=== PATIENT | female | born 1945 | race Caucasian/White ===

== ENCOUNTER 2018-05-05 22:18 | Inpatient (IN) | payer MEDICARE, OTHER ==
[~2018-05-05] VITALS: Ht 170.2 cm; Wt 99.8 kg
[~2018-05-05 22:18] MED LIST: CARV6.25 PO; DILTIAZEM PO; FERROUS SULFATE PO; GLIPIZIDE; PANT40TA25 PO; SITA100T12 PO; VALS160T2 PO
[2018-05-05] MEDS ORDERED: ASPIRIN 325 MG TABLET ONE (22:35)
[2018-05-05] MEDS ORDERED: DILTIAZEM HCL 5 MG/ML 5 ML VIAL IVP ONE ×2 (22:36→22:44)
[2018-05-05] MEDS ORDERED: SODIUM CHLORIDE 0.9% 100 ML IV ONE (22:39)
[2018-05-05] MEDS ORDERED: DILTIAZEM HCL 5 MG/ML 10 ML VIAL IV ONE (22:40)
[2018-05-05 22:42] LABS: BASOPHILS % (AUTO) 0.9 % (0.0-5.0); EOSINOPHILS % (AUTO) 1.4 % (0.0-8.0); LYMPHOCYTES % (AUTO) 30.5 % (21.0-51.0); MEAN CORPUSCULAR HEMOGLOBIN 25.4 pg (27.0-33.0); MEAN CORPUSCULAR VOLUME 79.5 fL (79-99); MONOCYTES % (AUTO) 6.9 % (3.0-13.0); NEUTROPHILS % (AUTO) 60.3 % (40.0-77.0); PLATELET COUNT (AUTO) 169 K/uL (130-400); RED BLOOD CELL COUNT(AUTO) 4.27 MIL/uL (4.00-5.50); RED CELL DISTRIBUTION WIDTH 17.3 % (11.0-15.5)
[2018-05-05 22:49] LABS: CREATININE 1.2 mg/dL (0.5-1.5); POTASSIUM 4.3 mmol/L (3.5-5.1)
[2018-05-05 22:57] LABS: INR 1.03 (0.85-1.15); PARTIAL THROMBOPLASTIN TIME 26.8 SEC (26.3-35.5); PROTHROMBIN TIME 10.8 SEC (9.6-11.6)
[2018-05-05 23:01] LABS: ALBUMIN 3.6 g/dL (3.5-5.0); BILIRUBIN,TOTAL 0.2 mg/dL (0.2-1.0); TOTAL PROTEIN, SERUM 7.9 g/dL (6.0-8.3)
[2018-05-05 23:06] LABS: B-TYPE NATRIURETIC PEPTIDE 158 pg/mL (0-100)
[2018-05-05] MEDS: SODIUM CHLORIDE 0.9% 1000ML 1,000 ML IV SCH (23:42)
[2018-05-05] MEDS ORDERED: ACETAMINOPHEN 325 MG TAB PO PRN ×2 (23:45)
[2018-05-05] MEDS ORDERED: GLUCAGON 1MG KIT 1 MG ML IM PRN (23:45)
[2018-05-05] MEDS ORDERED: POTASSIUM CHLORIDE 20MEQ/100ML 100 ML IV PRN (23:45)
[2018-05-05] MEDS ORDERED: POTASSIUM CHLORIDE 10% ELIXIR 20 MEQ/15 ML UDCUP PO PRN (23:45)
[2018-05-05] MEDS ORDERED: MAGNESIUM 2GM PREMIX 50ML 50 ML IV PRN (23:45)
[2018-05-05] MEDS ORDERED: DILTIAZEM 125MG+100 ML NS 125 ML IV SCH (23:45)
[2018-05-05] MEDS ORDERED: LIDOCAINE HCL-MPF 1% 2ML VIAL IVP PRN (23:45)
[2018-05-05] MEDS ORDERED: ONDANSETRON HCL 4 MG/2 ML VIAL IV PRN (23:45)
[2018-05-05] MEDS ORDERED: NITROGLYCERIN 0.4 MG SL TAB SL PRN (23:45)
[2018-05-05] MEDS ORDERED: POTASSIUM CHLORIDE 20 MEQ ERTAB PO PRN (23:45)
[2018-05-05] MEDS ORDERED: DEXTROSE 50%-WATER 50 ML DISP.SYRIN IV PRN (23:45)
[2018-05-06] MEDS ORDERED: MAGNESIUM OXIDE 400 MG TABLET PO ONE (00:03)
[2018-05-06 00:12] LABS: HEMOGLOBIN A1C 7.6 % (4.0-6.0)
--- NOTE | 2018-05-06 01:40 | NUR ---
ASSESSMENT PATIENT TRANSFERRED FROM [facility]. DX: A-FIB W/RVR. PATIENT DENIES PAIN AND SHORTNESS OF BREATH. O2 @ 2L - NASAL CANNULA. RESPIRATIONS UNLABORED. A-FIB HR 100'S. CARDIZEM DRIP INFUSING AT 5MG/HR. SEE DOCUMENTATION FOR FULL ASSESSMENT. CALL LIGHT WITHIN REACH. INSTRUCTED PATIENT TO CALL IF ASSISTANCE IS NEEDED.
[2018-05-06 02:05] VITALS: BP 140/100
[2018-05-06] MEDS ORDERED: DILT-5 PO (02:58)
[2018-05-06] MEDS ORDERED: OXYB10TA4 PO (02:58)
[2018-05-06] MEDS ORDERED: CARV3.12 PO (02:58)
[2018-05-06] MEDS ORDERED: FURO20TA4 PO (02:58)
[2018-05-06] MEDS ORDERED: LEVO25TA54 PO (03:24)
[2018-05-06] MEDS ORDERED: PANT40TA25 PO (03:24)
[2018-05-06] MEDS ORDERED: IRON PO (03:40)
[2018-05-06] MEDS ORDERED: SIMV20TA6 PO (03:40)
[2018-05-06] MEDS ORDERED: VALS160T2 PO (03:40)
[2018-05-06] MEDS ORDERED: SITA1TAB6 PO (03:40)
[2018-05-06] MEDS ORDERED: UBID200C18 PO (03:40)
[2018-05-06] MEDS ORDERED: RIVA20TA PO (03:40)
--- NOTE | 2018-05-06 04:00 | NUR ---
A-FIB HR 70'S TO 80'S. CARDIZEM DRIP STOPPED.
[2018-05-06 04:08] LABS: EOSINOPHILS % (AUTO) 0.8 % (0.0-8.0); HEMATOCRIT 30.1 % (36-48); MEAN CORPUSCULAR HEMOGLOBIN 25.7 pg (27.0-33.0); MEAN CORPUSCULAR HGB CONC 32.2 g/dL (32.0-36.0); MEAN CORPUSCULAR VOLUME 79.7 fL (79-99); MONOCYTES % (AUTO) 29.7 % (3.0-13.0); NEUTROPHILS % (AUTO) 37.5 % (40.0-77.0); PLATELET COUNT (AUTO) 144 K/uL (130-400); RED BLOOD CELL COUNT(AUTO) 3.78 MIL/uL (4.00-5.50); RED CELL DISTRIBUTION WIDTH 17.4 % (11.0-15.5); WHITE BLOOD COUNT (AUTO) 8.3 K/uL (4.8-10.8)
[2018-05-06 04:29] LABS: ALANINE AMINOTRANSFERASE 51 U/L (12-78); ALBUMIN 3.3 g/dL (3.5-5.0); ASPARTATE AMINOTRANSFERASE 35 U/L (10-37); BILIRUBIN,TOTAL 0.2 mg/dL (0.2-1.0); CARBON DIOXIDE 21 mmol/L (21-32); CHLORIDE 104 mmol/L (101-111); CHOLESTEROL 131 mg/dL (<200); CREATINE KINASE, TOTAL 46 U/L (21-232); CREATININE 1.1 mg/dL (0.5-1.5); GLOMERULAR FILTR. RATE CALC 52 mL/min (>60); GLUCOSE,RANDOM 199 mg/dL (70-105); HDL CHOLESTEROL 41 mg/dL (35-85); LDL DIRECT 34 mg/dL (0-99); MYOGLOBIN 55 ng/mL (10-92); POTASSIUM 4.1 mmol/L (3.5-5.1); SODIUM SERUM 139 mmol/L (136-145); TOTAL PROTEIN, SERUM 6.9 g/dL (6.0-8.3); TRIGLYCERIDES 339 mg/dL (30-200); TROPONIN I < 0.04 ng/mL (0.00-0.06); UREA NITROGEN, BLOOD 23 mg/dL (7-18)
[2018-05-06] MEDS: INSULIN HUMULIN R 100 UNIT/ML 3ML SQ SCH ×2 (06:21→11:30)
[2018-05-06 07:53] VITALS: BP 141/62
[2018-05-06] MEDS ORDERED: FAMOTIDINE 20MG TAB 20 MG TAB PO SCH (09:00)
[2018-05-06] MEDS ORDERED: LISINOPRIL 5 MG TABLET PO SCH (09:30)
[2018-05-06 10:46] LABS: CREATINE KINASE, TOTAL 44 U/L (21-232); MYOGLOBIN 56 ng/mL (10-92); TROPONIN I < 0.04 ng/mL (0.00-0.06)
[2018-05-06] MEDS: DILTIAZEM HCL 60 MG TABLET PO SCH ×2 (10:57→12:00)
[2018-05-06 11:24] VITALS: BP 139/75
[2018-05-06] MEDS ORDERED: DILTIAZEM HCL 60 MG TABLET PO SCH (12:00)
[2018-05-06] MEDS: SODIUM CHLORIDE 0.9% 1000ML 1,000 ML IV SCH (13:02)
[2018-05-06] MEDS ORDERED: CARVEDILOL 3.125 MG TABLET PO SCH (21:00)
== END 2018-05-06 14:15 | disposition home or self-care (01) | DRG 310 ==
LOC: EDH 22:18 → EDHIP 23:45 → 2DH 05-06 00:39
PROVIDERS: ADMIT Internal Medicine; ATTEND Internal Medicine
DX: I48.0 Paroxysmal atrial fibrillation (principal); E83.42 Hypomagnesemia; E11.9 Type 2 diabetes mellitus without complications; I10 Essential (primary) hypertension; E78.5 Hyperlipidemia, unspecified; Z79.01 Long term (current) use of anticoagulants; Z90.710 Acquired absence of both cervix and uterus; Z83.3 Family history of diabetes mellitus; Z82.5 Family history of asthma and other chronic lower respiratory diseases; Z82.49 Family history of ischemic heart disease and other diseases of the circulatory system; Z82.3 Family history of stroke; Z82.0 Family history of epilepsy and other diseases of the nervous system
CPT/HCPCS: 36415; 71045; 80053; 80061; 82550; 82948; 83036; 83735; 83874; 83880; 84484; 85025; 85610; 85730; 93005; 99291; G0378; J1815; J3475; J3490

== ENCOUNTER 2019-07-13 10:09 | Inpatient (IN) | payer OTHER ==
[~2019-07-13] VITALS: Ht 167.6 cm; Wt 100.2 kg
[~2019-07-13 10:09] MED LIST changes: -CARV6.25 PO; +DILT240C98 PO; -DILTIAZEM PO; -FERROUS SULFATE PO; -GLIPIZIDE; +IRON PO; +LEVO25TA54 PO; +OXYB10TA4 PO; -PANT40TA25 PO; +PANT40TA54 PO; +RIVA20TA PO; +SIMV-43 PO; -SITA100T12 PO; +SITA1TAB6 PO; +UBID200C18 PO
[2019-07-13 10:38] LABS: BASOPHILS % (AUTO) 0.2 % (0.0-5.0); EOSINOPHILS % (AUTO) 0.1 % (0.0-8.0); HEMATOCRIT 32.4 % (36-48); LYMPHOCYTES % (AUTO) 6.4 % (21.0-51.0); MEAN CORPUSCULAR HEMOGLOBIN 26.4 pg (27.0-33.0); MEAN CORPUSCULAR HGB CONC 31.2 g/dL (32.0-36.0); MEAN CORPUSCULAR VOLUME 84.6 fL (79-99); MONOCYTES % (AUTO) 7.6 % (3.0-13.0); PLATELET COUNT (AUTO) 149 K/uL (130-400); RED BLOOD CELL COUNT(AUTO) 3.83 MIL/uL (4.00-5.50); RED CELL DISTRIBUTION WIDTH 15.3 % (11.0-15.5); WHITE BLOOD COUNT (AUTO) 19.8 K/uL (4.8-10.8)
[2019-07-13] MEDS ORDERED: CEFTRIAXONE SODIUM 2 GM VIAL ONE (10:51)
[2019-07-13] MEDS ORDERED: ONDANSETRON HCL 4 MG/2 ML VIAL ONE (10:51)
[2019-07-13] MEDS ORDERED: SODIUM CHLORIDE 0.9% 100 ML IV ONE (10:52)
[2019-07-13] MEDS ORDERED: MORPHINE SULFATE 4 MG/1ML SYG ONE (10:52)
[2019-07-13 10:54] LABS: CREATININE 1.7 mg/dL (0.5-1.5); POTASSIUM 4.5 mmol/L (3.5-5.1)
[2019-07-13 10:58] LABS: ALBUMIN 3.4 g/dL (3.5-5.0); BILIRUBIN,TOTAL 0.7 mg/dL (0.2-1.0); TOTAL PROTEIN, SERUM 7.6 g/dL (6.0-8.3)
[2019-07-13] MEDS ORDERED: DOXYCYCLINE 100MG+NS 250ML 250 ML IV ONE (13:34)
[2019-07-13] MEDS ORDERED: DEXTROSE 50%-WATER 50 ML DISP.SYRIN IV PRN (14:45)
[2019-07-13] MEDS ORDERED: VANCOMYCIN PROTOCOL PER PHARMACY IV SCH (14:45)
[2019-07-13] MEDS ORDERED: SODIUM CHLORIDE 0.9% 1000ML 1,000 ML IV SCH (14:45)
[2019-07-13] MEDS ORDERED: ONDANSETRON HCL 4 MG/2 ML VIAL IVP PRN (14:45)
[2019-07-13] MEDS ORDERED: GLUCAGON 1MG KIT 1 MG ML IM PRN (14:45)
[2019-07-13] MEDS: DOXYCYCLINE 100MG+NS 250ML 250 ML IV SCH (15:01)
[2019-07-13] MEDS ORDERED: LORAZEPAM 2 MG/ML 1 ML VIAL ONE (15:24)
[2019-07-13] MEDS ORDERED: COMPOUND IV REFRIGERATED 1 EACH IVSOLN MISC PRN (15:45)
[2019-07-13] MEDS ORDERED: VANCOMYCIN 1.5 GM in SODIUM CHLORIDE 0.9% 250 ML IV ONE (16:00)
[2019-07-13 16:10] VITALS: BP 142/62
[2019-07-13] MEDS: INSULIN HUMULIN R 100 UNIT/ML 3ML SQ SCH ×2 (16:30→20:43)
[2019-07-13] MEDS ORDERED: LACTATED RINGERS 1000ML 1,000 ML IV ONE (17:00)
[2019-07-13] MEDS: ACETAMINOPHEN 325 MG TAB PO PRN ×2 (17:06→20:23)
[2019-07-13] MEDS: ZOSYN 3.375GM+NS 50ML 50 ML IV SCH (17:06)
[2019-07-13] MEDS: LACTATED RINGERS 1000ML 1,000 ML IV SCH (17:26)
[2019-07-13] MEDS: ACETAMINOPHEN-CODEINE 300/30MG TAB PO PRN (18:24)
[2019-07-13 19:30] VITALS: BP 136/66
[2019-07-13] MEDS: FAMOTIDINE 20MG TAB 20 MG TAB PO SCH (20:24)
[2019-07-13] MEDS: METOPROLOL TARTRATE 25 MG TAB PO SCH (20:24)
[2019-07-13] MEDS ORDERED: ZOSYN 3.375GM+NS 50ML 50 ML IV SCH (21:00)
[2019-07-13 23:47] VITALS: BP_SYST 115; BP_SYST 154; BP_DIAS 50; BP_DIAS 77
[2019-07-14] MEDS: DOXYCYCLINE 100MG+NS 250ML 250 ML IV SCH ×2 (03:01→13:44)
[2019-07-14 03:15] VITALS: BP 137/65
[2019-07-14] MEDS: LACTATED RINGERS 1000ML 1,000 ML IV SCH ×2 (04:05→13:00)
[2019-07-14] MEDS: ZOSYN 3.375GM+NS 50ML 50 ML IV SCH ×2 (04:05→15:53)
[2019-07-14 05:15] LABS: BASOPHILS % (AUTO) 0.2 % (0.0-5.0); EOSINOPHILS % (AUTO) 0.1 % (0.0-8.0); HEMATOCRIT 29.3 % (36-48); MEAN CORPUSCULAR HEMOGLOBIN 26.3 pg (27.0-33.0); MEAN CORPUSCULAR HGB CONC 30.7 g/dL (32.0-36.0); MEAN CORPUSCULAR VOLUME 85.7 fL (79-99); MONOCYTES % (AUTO) 7.9 % (3.0-13.0); NEUTROPHILS % (AUTO) 81.6 % (40.0-77.0); PLATELET COUNT (AUTO) 138 K/uL (130-400); RED BLOOD CELL COUNT(AUTO) 3.42 MIL/uL (4.00-5.50); RED CELL DISTRIBUTION WIDTH 15.4 % (11.0-15.5); WHITE BLOOD COUNT (AUTO) 17.5 K/uL (4.8-10.8)
[2019-07-14 05:23] LABS: CREATININE 1.6 mg/dL (0.5-1.5)
[2019-07-14] MEDS: INSULIN HUMULIN R 100 UNIT/ML 3ML SQ SCH ×4 (07:26→21:00)
[2019-07-14] MEDS: METOPROLOL TARTRATE 25 MG TAB PO SCH (07:52)
[2019-07-14] MEDS: ENOXAPARIN SODIUM 30 MG/0.3 ML SQ SCH (07:56)
--- NOTE | 2019-07-14 08:00 | NUR ---
ENCOUNTERED PATIENT LAYING ON BED WITH NO C/O PAIN NOR SOB. ENHANCED ISOLATION IS MAINTAINED WE AWAIT RESULTS FOR COVID-19. PT IS A/O X 3. CALL LIGHT WITHIN REACH. BED AT LOWEST POSITION. FULL ASSESSMENT DONE. INSTRUCTED TO CALL FOR ASSISTANCE. PATIENT VERBALIZED UNDERSTANDING.
--- NOTE | 2019-07-14 08:20 | NUR ---
DR. JORGENSEN IS MAKING HIS ROUNDS.
[2019-07-14 08:30] VITALS: BP 141/69
--- NOTE | 2019-07-14 08:30 | NUR ---
WARM COMPRESS UNABLE TO APPLY WARM COMPRESS TO ABDOMEN AT THIS TIME DUE TO FEVER 101.1F. COOLING MEASURES OBSERVED.
[2019-07-14] MEDS: ACETAMINOPHEN 325 MG TAB PO PRN (09:53)
[2019-07-14] MEDS: DILTIAZEM HCL 120 MG CAP.SR.24H PO SCH (10:37)
[2019-07-14 12:05] VITALS: BP 126/57
[2019-07-14] MEDS: VANCOMYCIN 750MG + NS 250 ML IV SCH ×2 (13:16)
--- NOTE | 2019-07-14 15:05 | NUR ---
INITIAL - SPOKE WITH SPOUSE AT LENGTH Addendum: 07/14/19 at 1617 by TONY MARTINEZ RN CM Amended: Links added.
--- NOTE | 2019-07-14 15:14 | NUR ---
INITIAL- SPOKE W SPOUSE AT LENGTH, STATES PATIENT HAS SYMPTOMS OF DEER TICK - "NOT COIVD, VERY UPSET PATIENT IS ON COVID FLOOR". STATES PT PRIOR TO THIS ADMIT, WAS AMBULATORY, ACTIVE, NO DME/SERVICES, DRIVES INDEPENDENT- USES CPAP AT HOME, IS DIABETIC, USES MED TO HELP SLEEP WHEN ANXIOUS- CALL TO FELIPE SWANSON RN, ADVISED HER STATES PATIENT IS' TERRIFIED' AND ANXIOUS', MAYBE COULD USE MED FOR SLEEP/ANXIETY IF NECESSARY/ PRN? STATES SHE WILL REVIEW, DISCUSS WITH
--- NOTE | 2019-07-14 16:13 | NUR ---
CALL TO NUMBERS ON FACE SHEET [phone] IS WRONG NUMBER (LISTED HOME ON FACE SHEET) [phone] NO ANSWER, NO VOICE MAIL, LISTED DAUGHTER ON FACE SHEET CALL TO ROOM [phone], NO ANSWER, CALL TO CHIOMA WANG, CAN PHONE BE PUT NEXT TO PATIENT FOR IA? WILL FOLLOW UP Addendum: 07/14/19 at 1617 by TONY MARTINEZ RN CM Amended: Links added. Addendum: 07/14/19 at 1618 by TONY MARTINEZ RN CM IGNORE, WRONG CHART
--- NOTE | 2019-07-14 16:18 | NUR ---
NOTE AT 1613 ON WRONG CHART, PLEASE IGNORE
[2019-07-14 16:30] VITALS: BP 132/57
[2019-07-14] MEDS: SITAGLIPTIN PHOS PO SCH (17:00)
[2019-07-14] MEDS: METFORMIN HCL PO SCH (17:00)
[2019-07-14] MEDS: ACETAMINOPHEN-CODEINE 300/30MG TAB PO PRN (17:55)
[2019-07-14] MEDS: FAMOTIDINE 20MG TAB 20 MG TAB PO SCH (20:09)
[2019-07-14] MEDS: SIMVASTATIN 20 MG TABLET PO SCH (20:09)
[2019-07-14 20:16] VITALS: BP 149/60
[2019-07-14] MEDS ORDERED: RIVAROXABAN 20 MG TABLET PO SCH (21:00)
[2019-07-14 23:52] VITALS: BP 118/58
[2019-07-15] MEDS: DOXYCYCLINE 100MG+NS 250ML 250 ML IV SCH ×2 (02:13→15:56)
[2019-07-15] MEDS: ACETAMINOPHEN-CODEINE 300/30MG TAB PO PRN ×3 (02:17→22:03)
[2019-07-15] MEDS: ZOSYN 3.375GM+NS 50ML 50 ML IV SCH ×2 (03:17→16:20)
[2019-07-15 04:09] VITALS: BP 138/53
[2019-07-15 05:56] LABS: BASOPHILS % (AUTO) 0.2 % (0.0-5.0); EOSINOPHILS % (AUTO) 0.3 % (0.0-8.0); HEMATOCRIT 26.7 % (36-48); LYMPHOCYTES % (AUTO) 10.5 % (21.0-51.0); MEAN CORPUSCULAR HEMOGLOBIN 25.8 pg (27.0-33.0); MEAN CORPUSCULAR HGB CONC 30.3 g/dL (32.0-36.0); MONOCYTES % (AUTO) 6.6 % (3.0-13.0); NEUTROPHILS % (AUTO) 81.4 % (40.0-77.0); PLATELET COUNT (AUTO) 156 K/uL (130-400); RED BLOOD CELL COUNT(AUTO) 3.14 MIL/uL (4.00-5.50); RED CELL DISTRIBUTION WIDTH 15.5 % (11.0-15.5); WHITE BLOOD COUNT (AUTO) 15.7 K/uL (4.8-10.8)
[2019-07-15 06:04] LABS: HEMOGLOBIN A1C 5.2 % (4.0-6.0)
[2019-07-15] MEDS: LACTATED RINGERS 1000ML 1,000 ML IV SCH (06:09)
[2019-07-15] MEDS: INSULIN HUMULIN R 100 UNIT/ML 3ML SQ SCH ×4 (06:11→20:59)
[2019-07-15 06:21] LABS: CREATININE 1.6 mg/dL (0.5-1.5); POTASSIUM 3.3 mmol/L (3.5-5.1)
[2019-07-15 06:43] LABS: CRP QUANTITATIVE 237.3 mg/L (0.00-9.0)
[2019-07-15 07:17] LABS: ERYTHROCYTE SEDIMENTATION RATE 127 MM/HR (0-30)
[2019-07-15 07:40] VITALS: BP 123/50
[2019-07-15] MEDS: METFORMIN HCL PO SCH ×2 (08:00→17:00)
[2019-07-15] MEDS: SITAGLIPTIN PHOS PO SCH ×2 (08:00→17:00)
[2019-07-15] MEDS: DILTIAZEM HCL 120 MG CAP.SR.24H PO SCH (09:00)
[2019-07-15] MEDS: OXYBUTYNIN 5 MG TAB.SR.24H PO SCH (09:01)
[2019-07-15] MEDS: LOSARTAN 100 MG TABLET PO SCH (09:01)
[2019-07-15] MEDS: LEVOTHYROXINE 25 MCG TABLET PO SCH (09:01)
[2019-07-15] MEDS: FERROUS SULFATE 325 MG TABLET.DR PO SCH (09:01)
[2019-07-15] MEDS: PANTOPRAZOLE SODIUM 40 MG TABLET.DR PO SCH (09:01)
[2019-07-15] MEDS: UBIDECARENONE 200 MG PO SCH (09:02)
[2019-07-15] MEDS: ENOXAPARIN SODIUM 30 MG/0.3 ML SQ SCH (09:02)
--- NOTE | 2019-07-15 09:47 | NUR ---
NOTIFIED IRVIN ACEVEDO THE PA OF DR KC.
[2019-07-15] MEDS ORDERED: LIDOCAINE HCL-MPF 1% 2ML VIAL IV PRN (10:15)
[2019-07-15] MEDS ORDERED: POTASSIUM CHLORIDE 10% ELIXIR 20 MEQ/15 ML UDCUP PO PRN (10:15)
[2019-07-15] MEDS ORDERED: POTASSIUM CHLORIDE 20MEQ/100ML 100 ML IV PRN (10:15)
[2019-07-15 12:12] VITALS: BP 126/55
[2019-07-15] MEDS: VANCOMYCIN 750MG + NS 250 ML IV SCH ×2 (13:31)
[2019-07-15 16:17] VITALS: BP 122/50
[2019-07-15 19:32] VITALS: BP 139/49
[2019-07-15] MEDS: POTASSIUM CHLORIDE 20 MEQ ERTAB PO PRN (20:28)
[2019-07-15] MEDS: FAMOTIDINE 20MG TAB 20 MG TAB PO SCH (20:28)
[2019-07-15] MEDS: SIMVASTATIN 20 MG TABLET PO SCH (20:28)
[2019-07-15 23:42] VITALS: BP 148/55
[2019-07-16] MEDS: POTASSIUM CHLORIDE 20 MEQ ERTAB PO PRN (02:47)
[2019-07-16] MEDS: LACTATED RINGERS 1000ML 1,000 ML IV SCH ×2 (02:48→22:16)
[2019-07-16] MEDS: DOXYCYCLINE 100MG+NS 250ML 250 ML IV SCH ×2 (03:34→14:49)
[2019-07-16 04:14] VITALS: BP 157/55
[2019-07-16] MEDS: ZOSYN 3.375GM+NS 50ML 50 ML IV SCH ×2 (04:18→16:06)
[2019-07-16 05:39] LABS: BASOPHILS % (AUTO) 0.3 % (0.0-5.0); LYMPHOCYTES % (AUTO) 11.3 % (21.0-51.0); MEAN CORPUSCULAR HEMOGLOBIN 25.9 pg (27.0-33.0); MEAN CORPUSCULAR HGB CONC 30.3 g/dL (32.0-36.0); MEAN CORPUSCULAR VOLUME 85.3 fL (79-99); MONOCYTES % (AUTO) 6.5 % (3.0-13.0); NEUTROPHILS % (AUTO) 79.3 % (40.0-77.0); PLATELET COUNT (AUTO) 194 K/uL (130-400); RED CELL DISTRIBUTION WIDTH 15.7 % (11.0-15.5); WHITE BLOOD COUNT (AUTO) 13.9 K/uL (4.8-10.8)
[2019-07-16 05:51] LABS: CREATININE 1.4 mg/dL (0.5-1.5); POTASSIUM 3.9 mmol/L (3.5-5.1)
[2019-07-16] MEDS: PANTOPRAZOLE SODIUM 40 MG TABLET.DR PO SCH (06:25)
[2019-07-16] MEDS: INSULIN HUMULIN R 100 UNIT/ML 3ML SQ SCH ×4 (06:25→21:00)
[2019-07-16] MEDS: LEVOTHYROXINE 25 MCG TABLET PO SCH (06:25)
[2019-07-16 07:54] VITALS: BP 152/57
[2019-07-16] MEDS: METFORMIN HCL PO SCH ×2 (08:00→17:00)
[2019-07-16] MEDS: SITAGLIPTIN PHOS PO SCH ×2 (08:00→17:00)
[2019-07-16] MEDS: DILTIAZEM HCL 120 MG CAP.SR.24H PO SCH (08:25)
[2019-07-16] MEDS: OXYBUTYNIN 5 MG TAB.SR.24H PO SCH (08:26)
[2019-07-16] MEDS: LOSARTAN 100 MG TABLET PO SCH (08:26)
[2019-07-16] MEDS: FERROUS SULFATE 325 MG TABLET.DR PO SCH (08:26)
[2019-07-16] MEDS: UBIDECARENONE 200 MG PO SCH (08:32)
[2019-07-16] MEDS: ENOXAPARIN SODIUM 30 MG/0.3 ML SQ SCH (08:32)
[2019-07-16 11:44] VITALS: BP 155/59
[2019-07-16] MEDS: VANCOMYCIN 750MG + NS 250 ML IV SCH ×4 (12:27→13:56)
[2019-07-16 16:32] VITALS: BP 158/60
[2019-07-16 18:52] VITALS: BP 131/76
--- NOTE | 2019-07-16 19:05 | NUR ---
Received report patient for I&D tomorrow and consent already obtained as per dayshift.
[2019-07-16] MEDS: ACETAMINOPHEN-CODEINE 300/30MG TAB PO PRN (21:15)
[2019-07-16] MEDS: FAMOTIDINE 20MG TAB 20 MG TAB PO SCH (21:15)
[2019-07-16] MEDS: SIMVASTATIN 20 MG TABLET PO SCH (21:16)
[2019-07-16] MEDS: VANCOMYCIN 500MG+NS 100ML 100 ML IV SCH (21:18)
--- NOTE | 2019-07-16 22:14 | NUR ---
Patient instructed to be nothing by mouth at midnight and demonstrated understanding.
--- NOTE | 2019-07-16 22:17 | NUR ---
MONICA Garcia was called and notified that Covid 19 test is negative .
[2019-07-16 23:49] VITALS: BP 161/61
[2019-07-17] VITALS (26 sets, daily range): BP systolic 145–164; BP diastolic 53–70
--- NOTE | 2019-07-17 | NUR ---
Patient kept NPO at this time.
[2019-07-17] MEDS: DOXYCYCLINE 100MG+NS 250ML 250 ML IV SCH (03:55)
[2019-07-17] MEDS: ZOSYN 3.375GM+NS 50ML 50 ML IV SCH ×2 (03:56→19:21)
[2019-07-17] MEDS: LACTATED RINGERS 1000ML 1,000 ML IV SCH ×2 (04:29→15:59)
[2019-07-17 05:59] LABS: BASOPHILS % (AUTO) 0.6 % (0.0-5.0); HEMATOCRIT 26.4 % (36-48); LYMPHOCYTES % (AUTO) 12.7 % (21.0-51.0); MEAN CORPUSCULAR HEMOGLOBIN 26.3 pg (27.0-33.0); MEAN CORPUSCULAR HGB CONC 31.1 g/dL (32.0-36.0); MEAN CORPUSCULAR VOLUME 84.6 fL (79-99); MONOCYTES % (AUTO) 8.2 % (3.0-13.0); NEUTROPHILS % (AUTO) 72.7 % (40.0-77.0); PLATELET COUNT (AUTO) 218 K/uL (130-400); RED BLOOD CELL COUNT(AUTO) 3.12 MIL/uL (4.00-5.50); RED CELL DISTRIBUTION WIDTH 15.6 % (11.0-15.5); WHITE BLOOD COUNT (AUTO) 10.5 K/uL (4.8-10.8)
[2019-07-17 06:23] LABS: ALBUMIN 2.1 g/dL (3.5-5.0); BILIRUBIN,TOTAL 0.3 mg/dL (0.2-1.0); CREATININE 1.3 mg/dL (0.5-1.5); POTASSIUM 3.4 mmol/L (3.5-5.1)
[2019-07-17] MEDS: LEVOTHYROXINE 25 MCG TABLET PO SCH (06:31)
[2019-07-17] MEDS: PANTOPRAZOLE SODIUM 40 MG TABLET.DR PO SCH (06:31)
[2019-07-17] MEDS: INSULIN HUMULIN R 100 UNIT/ML 3ML SQ SCH ×4 (06:32→21:00)
[2019-07-17] MEDS: SITAGLIPTIN PHOS PO SCH ×2 (07:40→17:00)
[2019-07-17] MEDS: METFORMIN HCL PO SCH ×2 (07:40→17:00)
[2019-07-17] MEDS: ENOXAPARIN SODIUM 30 MG/0.3 ML SQ SCH (08:05)
[2019-07-17] MEDS: FERROUS SULFATE 325 MG TABLET.DR PO SCH (08:07)
[2019-07-17] MEDS: UBIDECARENONE 200 MG PO SCH (08:07)
[2019-07-17] MEDS: OXYBUTYNIN 5 MG TAB.SR.24H PO SCH (08:08)
[2019-07-17] MEDS ORDERED: IRON SUCROSE COMPLEX 300 MG in SODIUM CHLORIDE 0.9% 50 ML IV SCH (09:00)
[2019-07-17] MEDS: LOSARTAN 100 MG TABLET PO SCH (09:33)
[2019-07-17] MEDS: DILTIAZEM HCL 120 MG CAP.SR.24H PO SCH (09:33)
[2019-07-17] MEDS: VANCOMYCIN 500MG+NS 100ML 100 ML IV SCH ×2 (10:00→21:47)
--- NOTE | 2019-07-17 10:15 | NUR ---
REPORT CALLED TO CHIOMA SHEIKH AT THIS TIME; PATIENT TO GO TO ROOM 331; PATIENT DENIES PAIN OR COMPLAINTS AT THIS TIME
[2019-07-17] MEDS ORDERED: MIDAZOLAM HCL 1 MG/ML 2ML VIAL ONE (10:35)
[2019-07-17] MEDS ORDERED: DEXAMETHASONE SOD PHOSPHATE 10MG/ML 1ML VIAL ONE (10:35)
[2019-07-17] MEDS ORDERED: LIDOCAINE PF 2% 5ML ABBOJECT ONE (10:35)
[2019-07-17] MEDS ORDERED: SUCCINYLCHOLINE 200MG/10ML SYR ONE (10:35)
[2019-07-17] MEDS ORDERED: GLYCOPYRROLATE 1 MG/5 ML SYRINGE ONE (10:36)
[2019-07-17] MEDS ORDERED: PROPOFOL 10 MG/ML 20ML VIAL IV ONE (10:36)
[2019-07-17] MEDS ORDERED: NEOSTIGMINE 5MG/5ML SYR IV ONE (10:36)
[2019-07-17] MEDS ORDERED: ONDANSETRON HCL 4 MG/2 ML VIAL ONE (10:36)
[2019-07-17] MEDS ORDERED: ROCURONIUM 10MG/1ML SYR 10 MG/ML ML ONE (10:37)
[2019-07-17] MEDS ORDERED: FENTANYL CITRATE PF 50 MCG/1 ML 2ML VIAL ONE (10:37)
--- NOTE | 2019-07-17 10:39 | NUR ---
OR STAFF TAKING PATIENT TO OR ROOM AT THIS TIME; MED SURG NURSE, CHIOMA SHEIKH NOTIFIED AND PATIENT WILL BE GOING TO ROOM 331 POST PROCEDURE
[2019-07-17] MEDS ORDERED: SODIUM CHLORIDE 0.9% 1000ML 1,000 ML IV ONE (10:41)
[2019-07-17] MEDS ORDERED: ALBUTEROL INHALER 90MCG/INH IH ONE (11:23)
[2019-07-17] MEDS ORDERED: IPRATROPIUM/ALBUTEROL SULFATE 3 ML SOLUTION IH SCH (12:00)
[2019-07-17] MEDS ORDERED: COMPOUND IV MISC 1 EACH IVSOLN MISC PRN (12:00)
[2019-07-17] MEDS ORDERED: MEPERIDINE-PF 25 MG/ML SYG ONE (12:06)
--- NOTE | 2019-07-17 13:30 | NUR ---
Pt back from OR AAOX3 IN NO DISTRESS, ABD DRESSING WITH MODERATE DRAINAGE. INTACT. IV PATENT, INTACT. LUNGS CLEAR. DENIES ANY DISTRESS.
[2019-07-17] MEDS: ACETAMINOPHEN-CODEINE 300/30MG TAB PO PRN ×2 (14:08→22:00)
[2019-07-17] MEDS: IRON SUCROSE COMPLEX 300 MG in SODIUM CHLORIDE 0.9% 250 ML IV SCH (16:00)
--- NOTE | 2019-07-17 19:00 | NUR ---
ROUNDS Pt sitting up on chair,aao x 3.Denies pain or discomfort.Abd dressing dry and intact.
[2019-07-17] MEDS: FAMOTIDINE 20MG TAB 20 MG TAB PO SCH (21:46)
[2019-07-17] MEDS: SIMVASTATIN 20 MG TABLET PO SCH (21:47)
--- NOTE | 2019-07-17 22:00 | NUR ---
BACK IN BED Pt assisted back in bed per staff,abd dressing reinforced. Addendum: 07/17/19 at 3363 by NANI MILLER RN RN Medicated with Tylenol # 3 for c/o of moderate pain to incision site.
[2019-07-18 03:49] VITALS: BP 161/61
[2019-07-18] MEDS: ZOSYN 3.375GM+NS 50ML 50 ML IV SCH ×2 (04:11→16:17)
[2019-07-18] MEDS: ACETAMINOPHEN-CODEINE 300/30MG TAB PO PRN ×2 (04:40→09:18)
[2019-07-18] MEDS: INSULIN HUMULIN R 100 UNIT/ML 3ML SQ SCH ×4 (05:28→20:54)
[2019-07-18 06:06] LABS: BASOPHILS % (AUTO) 0.9 % (0.0-5.0); EOSINOPHILS % (AUTO) 0.8 % (0.0-8.0); HEMATOCRIT 26.5 % (36-48); LYMPHOCYTES % (AUTO) 13.3 % (21.0-51.0); MEAN CORPUSCULAR HEMOGLOBIN 25.8 pg (27.0-33.0); MEAN CORPUSCULAR HGB CONC 30.6 g/dL (32.0-36.0); MEAN CORPUSCULAR VOLUME 84.4 fL (79-99); MONOCYTES % (AUTO) 9.4 % (3.0-13.0); NEUTROPHILS % (AUTO) 67.1 % (40.0-77.0); NUCLEATED RED BLOOD CELLS 0.2 % (0.0-0.19); PLATELET COUNT (AUTO) 237 K/uL (130-400); RED BLOOD CELL COUNT(AUTO) 3.14 MIL/uL (4.00-5.50); RED CELL DISTRIBUTION WIDTH 15.9 % (11.0-15.5); WHITE BLOOD COUNT (AUTO) 11.6 K/uL (4.8-10.8)
[2019-07-18] MEDS: PANTOPRAZOLE SODIUM 40 MG TABLET.DR PO SCH (06:17)
[2019-07-18] MEDS: LEVOTHYROXINE 25 MCG TABLET PO SCH (06:17)
[2019-07-18 06:33] LABS: ALBUMIN 2.2 g/dL (3.5-5.0); BILIRUBIN,TOTAL 0.2 mg/dL (0.2-1.0); CREATININE 1.1 mg/dL (0.5-1.5); CRP QUANTITATIVE 72.3 mg/L (0.00-9.0); MAGNESIUM 1.3 mg/dL (1.80-2.40)
--- NOTE | 2019-07-18 06:55 | NUR ---
AD DYAN Pt up ad dyan to bathroom,mariela well.
[2019-07-18 07:25] VITALS: BP 139/51
[2019-07-18] MEDS: SITAGLIPTIN PHOS PO SCH ×2 (08:00→16:48)
[2019-07-18] MEDS: METFORMIN HCL PO SCH ×2 (08:00→16:48)
[2019-07-18] MEDS: UBIDECARENONE 200 MG PO SCH (09:00)
[2019-07-18] MEDS: DILTIAZEM HCL 120 MG CAP.SR.24H PO SCH (09:11)
[2019-07-18] MEDS: OXYBUTYNIN 5 MG TAB.SR.24H PO SCH (09:11)
[2019-07-18] MEDS: ASCORBIC ACID 500 MG TAB PO SCH (09:11)
[2019-07-18] MEDS: LOSARTAN 100 MG TABLET PO SCH (09:11)
[2019-07-18] MEDS: ENOXAPARIN SODIUM 30 MG/0.3 ML SQ SCH (09:11)
[2019-07-18] MEDS: VANCOMYCIN 500MG+NS 100ML 100 ML IV SCH (09:17)
[2019-07-18] MEDS: IRON SUCROSE COMPLEX 300 MG in SODIUM CHLORIDE 0.9% 250 ML IV SCH (09:17)
[2019-07-18] MEDS: FERROUS SULFATE 325 MG TABLET.DR PO SCH (09:18)
[2019-07-18 11:11] VITALS: BP 126/63
[2019-07-18 15:08] VITALS: BP 156/59
[2019-07-18] MEDS ORDERED: VANCOMYCIN 1GM+NS 250ML 250 ML IV ONE (19:15)
--- NOTE | 2019-07-18 19:30 | NUR ---
Paged [employer] Paged ERNESTINE Garcia Inspector [employer] to follow up order left per Joseph MARTINEZ manager of sales for Mg Supplement,Diflucan and Valtrex as received from Am shift report.He said Joseph is still working on her orders.Obtained order for Peptobismol as per pt requested.Called Pharmacy to bring peptobismol.
[2019-07-18] MEDS ORDERED: BISMUTH SUBSALICYLATE 525 MG/15 ML ML PO PRN (19:45)
[2019-07-18] MEDS: FAMOTIDINE 20MG TAB 20 MG TAB PO SCH (19:47)
[2019-07-18 20:00] VITALS: BP 153/62
[2019-07-18] MEDS: SIMVASTATIN 20 MG TABLET PO SCH (21:14)
--- NOTE | 2019-07-18 21:52 | NUR ---
MED Peptobismol not available,pt is sleeping now.She said it's ok.
[2019-07-18 23:30] VITALS: BP 149/50
[2019-07-19 03:09] VITALS: BP 137/47
--- NOTE | 2019-07-19 03:35 | NUR ---
COMPLAINT Pt very upset,states she's been waiting for the Valtrex and Diflucan.I paged Luis Manuel Garcia Contamination Consultant and updated on pt.s complaints.Pt states she has Hx of herpes and suffers from blisters and mouth sores.LUIS MANUEL Garcia Contamination Consultant to enter orders.
[2019-07-19] MEDS: ZOSYN 3.375GM+NS 50ML 50 ML IV SCH ×2 (03:43→15:33)
[2019-07-19] MEDS ORDERED: VALACYCLOVIR HCL 500 MG TABLET ONE (03:54)
[2019-07-19] MEDS ORDERED: VALACYCLOVIR HCL 500 MG TABLET PO SCH ×4 (04:00→09:00)
--- NOTE | 2019-07-19 04:32 | NUR ---
CLARIFY Order for valcyclovir clarified with Luis Manuel diamond np.
[2019-07-19] MEDS: MAGNESIUM 2GM PREMIX 50ML 50 ML IV PRN (04:34)
[2019-07-19] MEDS: VALACYCLOVIR HCL 500 MG TABLET PO SCH ×2 (05:32→15:33)
[2019-07-19] MEDS: INSULIN HUMULIN R 100 UNIT/ML 3ML SQ SCH ×4 (05:52→20:56)
[2019-07-19] MEDS: PANTOPRAZOLE SODIUM 40 MG TABLET.DR PO SCH (06:06)
[2019-07-19] MEDS: LEVOTHYROXINE 25 MCG TABLET PO SCH (06:06)
[2019-07-19] MEDS: VANCOMYCIN 750MG + NS 250 ML IV SCH ×4 (06:08→16:51)
[2019-07-19 06:13] LABS: BASOPHILS % (AUTO) 1.1 % (0.0-5.0); EOSINOPHILS % (AUTO) 0.8 % (0.0-8.0); HEMATOCRIT 28.5 % (36-48); LYMPHOCYTES % (AUTO) 14.8 % (21.0-51.0); MEAN CORPUSCULAR HEMOGLOBIN 25.1 pg (27.0-33.0); MEAN CORPUSCULAR HGB CONC 29.5 g/dL (32.0-36.0); MEAN CORPUSCULAR VOLUME 85.3 fL (79-99); MONOCYTES % (AUTO) 6.3 % (3.0-13.0); NEUTROPHILS % (AUTO) 61.9 % (40.0-77.0); NUCLEATED RED BLOOD CELLS 0.1 % (0.0-0.19); PLATELET COUNT (AUTO) 269 K/uL (130-400); RED BLOOD CELL COUNT(AUTO) 3.34 MIL/uL (4.00-5.50); WHITE BLOOD COUNT (AUTO) 13.8 K/uL (4.8-10.8)
[2019-07-19 06:39] LABS: ALBUMIN 2.4 g/dL (3.5-5.0); BILIRUBIN,TOTAL 0.2 mg/dL (0.2-1.0); CREATININE 1.4 mg/dL (0.5-1.5); POTASSIUM 3.6 mmol/L (3.5-5.1); TOTAL PROTEIN, SERUM 6.3 g/dL (6.0-8.3)
[2019-07-19] MEDS ORDERED: FLUCONAZOLE 100 MG TAB PO SCH (07:30)
[2019-07-19 08:00] VITALS: BP 127/44
[2019-07-19] MEDS: SITAGLIPTIN PHOS PO SCH ×2 (08:00→16:20)
[2019-07-19] MEDS: METFORMIN HCL PO SCH ×2 (08:00→16:20)
[2019-07-19] MEDS: UBIDECARENONE 200 MG PO SCH (09:00)
[2019-07-19] MEDS: IRON SUCROSE COMPLEX 300 MG in SODIUM CHLORIDE 0.9% 250 ML IV SCH (09:13)
[2019-07-19] MEDS: ENOXAPARIN SODIUM 30 MG/0.3 ML SQ SCH (09:14)
[2019-07-19] MEDS: LOSARTAN 100 MG TABLET PO SCH (09:15)
[2019-07-19] MEDS: ASCORBIC ACID 500 MG TAB PO SCH (09:15)
[2019-07-19] MEDS: DILTIAZEM HCL 120 MG CAP.SR.24H PO SCH (09:15)
[2019-07-19] MEDS: FERROUS SULFATE 325 MG TABLET.DR PO SCH (09:16)
[2019-07-19] MEDS: OXYBUTYNIN 5 MG TAB.SR.24H PO SCH (09:16)
[2019-07-19] MEDS: ACETAMINOPHEN-CODEINE 300/30MG TAB PO PRN ×2 (09:18→21:02)
[2019-07-19] MEDS: LACTATED RINGERS 1000ML 1,000 ML IV SCH (10:16)
[2019-07-19 12:00] VITALS: BP 153/58
[2019-07-19] MEDS ORDERED: PHARMACY COMMUNICATION MISC SCH (15:00)
[2019-07-19 16:00] VITALS: BP 141/51
--- NOTE | 2019-07-19 17:02 | NUR ---
CM NOTE/HOME HEALTH REFERRAL MEET WITH PATIENT IN ROOM. PATIENT MADE AWARE NEW REFERRAL FOR HOME HEALTH FOR WOUND CARE AND PHYSICAL THERAPY. OPTIONS FOR HOME HEALTH GIVEN TO PATIENT: [facility], [facility], [facility]. PER PATIENT, WILL FALL FAMILY TO DISCUSS OPTIONS AND WILL GET BACK TO ME WITH DECISION. WORK CELL NUMBER GIVEN, PENDING HOME HEALTH SET UP. PRIMARY NURSE, PHILLIP RN, MADE AWARE OF CONVERSATION.
[2019-07-19] MEDS: LOPERAMIDE 1 MG/7.5 ML UDCUP PO PRN ×2 (19:19→23:22)
[2019-07-19 19:20] VITALS: BP 143/50
[2019-07-19] MEDS: TRAZODONE HCL 50 MG TAB PO PRN (20:57)
[2019-07-19] MEDS: SIMVASTATIN 20 MG TABLET PO SCH (20:57)
[2019-07-19] MEDS: FAMOTIDINE 20MG TAB 20 MG TAB PO SCH (20:57)
--- NOTE | 2019-07-20 01:34 | NUR ---
PATIENT HAS BEEN HAVING LOOSE STOOLS, ADMINISTERED IMODIUM 2 DOSES ALREADY. PATIENT ALSO BEING ANXIOUS OF BEING DISCHARGE TO POSSIBLE REHAB. ALLOWED PATIENT TO VENT FEELINGS, STILL STATED FELT ANXIOUS. JOE HEAD BUCKER PAGED, ANSWERED WITHIN A FEW MINUTES. INFORMED HIM OF ABOVE, STATED TO GO AHEAD AND ADMINISTER ANOTHER DOSE OF IMODIUM AND ADMINISTER XANAX 0.25 MG X1 DOSE STAT. PATIENT MADE AWARE, INFORMED HER WOULD BE ADMINISTERING MEDICATION SOON AVAILABLE BY [facility]. PATIENT VERBALIZED UNDERSTANDING.
[2019-07-20 01:39] VITALS: BP 147/66
[2019-07-20] MEDS ORDERED: ALPRAZOLAM 0.25 MG TABLET PO ONE (01:45)
[2019-07-20] MEDS ORDERED: ALPRAZOLAM 0.25 MG TABLET ONE (01:57)
[2019-07-20] MEDS ORDERED: LOPERAMIDE HCL 2 MG CAP PO ONE (01:57)
[2019-07-20] MEDS ORDERED: LOPERAMIDE 1 MG/7.5 ML UDCUP PO SCH ×2 (02:00)
[2019-07-20] MEDS: LACTATED RINGERS 1000ML 1,000 ML IV SCH (02:07)
[2019-07-20 04:00] VITALS: BP 146/52
[2019-07-20] MEDS: ZOSYN 3.375GM+NS 50ML 50 ML IV SCH ×2 (05:11→15:40)
[2019-07-20 05:43] LABS: MAGNESIUM 1.5 mg/dL (1.80-2.40); POTASSIUM 3.7 mmol/L (3.5-5.1)
[2019-07-20] MEDS: POTASSIUM CHLORIDE 20 MEQ ERTAB PO PRN ×2 (06:08→08:59)
[2019-07-20] MEDS: LEVOTHYROXINE 25 MCG TABLET PO SCH (06:09)
[2019-07-20] MEDS: PANTOPRAZOLE SODIUM 40 MG TABLET.DR PO SCH (06:09)
[2019-07-20] MEDS: MAGNESIUM 2GM PREMIX 50ML 50 ML IV PRN (06:10)
[2019-07-20] MEDS: VANCOMYCIN 750MG + NS 250 ML IV SCH ×4 (06:10→17:48)
[2019-07-20 07:30] VITALS: BP 164/62
[2019-07-20] MEDS: INSULIN HUMULIN R 100 UNIT/ML 3ML SQ SCH ×4 (07:30→21:00)
[2019-07-20] MEDS: METFORMIN HCL PO SCH ×2 (07:59→16:46)
[2019-07-20] MEDS: SITAGLIPTIN PHOS PO SCH ×2 (07:59→16:46)
[2019-07-20] MEDS: ENOXAPARIN SODIUM 30 MG/0.3 ML SQ SCH (08:58)
[2019-07-20] MEDS: IRON SUCROSE COMPLEX 300 MG in SODIUM CHLORIDE 0.9% 250 ML IV SCH (08:58)
[2019-07-20] MEDS: ASCORBIC ACID 500 MG TAB PO SCH (08:59)
[2019-07-20] MEDS: LOSARTAN 100 MG TABLET PO SCH (08:59)
[2019-07-20] MEDS: DILTIAZEM HCL 120 MG CAP.SR.24H PO SCH (08:59)
[2019-07-20] MEDS: OXYBUTYNIN 5 MG TAB.SR.24H PO SCH (08:59)
[2019-07-20] MEDS: UBIDECARENONE 200 MG PO SCH (09:00)
[2019-07-20] MEDS ORDERED: PHARMACY COMMUNICATION MISC SCH (09:00)
[2019-07-20] MEDS: FERROUS SULFATE 325 MG TABLET.DR PO SCH (09:00)
[2019-07-20 11:00] VITALS: BP 166/70
--- NOTE | 2019-07-20 15:31 | NUR ---
RDSCREEN - LOS X 7 Pt admitted for abdominal wall cellulitis. S/p Debridement. Pt with 75gm CC diet order in place. PO intake at 100%. Noted, Pt with Liquid/loose stools. Also with antibiotic medications in place. Noted, decreased serum Magnesium levels. Vitamin C in place. Recommend continue 75gm [address]. RD to continue to monitor. Please notify as additional nutrition concerns arise. Thank you. Addendum: 07/20/19 at [address] Amended: Links added.
[2019-07-20] MEDS: LORATADINE 10 MG TABLET PO SCH (15:40)
[2019-07-20] MEDS: FLUTICASONE PROPIONATE 50MCG/SPRAY 16 GM BOTTLE EN SCH (15:56)
[2019-07-20 16:00] VITALS: BP 145/63
--- NOTE | 2019-07-20 18:26 | NUR ---
CM NOTE/HH REFERRAL MEET WITH PATIENT IN ROOM. PER PATIENT, OK FOR [facility], [facility] FILLED OUT. CLINICAL PACKET FAXED AND CONFIRMED RECEIVED AT [facility], PENDING AUTHORIZATION. CM TO FOLLOW UP. KRYSTLE BEDOLLA, PRIMARY NURSE, MADE AWARE.
[2019-07-20 20:00] VITALS: BP 115/55
--- NOTE | 2019-07-20 22:00 | NUR ---
Using sterile supplies and aspetic tech. did dressing change to lower part of abdomen. Removed old dressing by adding sterile normal saline to packed dressing, removed, bloody drainage. Tunneling to upper part 5 , dept 5, using sterile gauze packed dressing with sterile normal saline wet dressing then applied drsgs 4x4s dry and secured with tape. Patient tolerated procedure fair.
[2019-07-20] MEDS: TRAZODONE HCL 50 MG TAB PO PRN (22:22)
[2019-07-20] MEDS: FAMOTIDINE 20MG TAB 20 MG TAB PO SCH (22:22)
[2019-07-20] MEDS: SIMVASTATIN 20 MG TABLET PO SCH (22:22)
[2019-07-20] MEDS: ACETAMINOPHEN-CODEINE 300/30MG TAB PO PRN (22:45)
[2019-07-21 00:25] VITALS: BP 163/62
[2019-07-21] MEDS: LACTATED RINGERS 1000ML 1,000 ML IV SCH (02:48)
[2019-07-21 03:59] LABS: BASOPHILS % (AUTO) 0.9 % (0.0-5.0); HEMATOCRIT 26.6 % (36-48); LYMPHOCYTES % (AUTO) 18.4 % (21.0-51.0); MEAN CORPUSCULAR HEMOGLOBIN 25.5 pg (27.0-33.0); MEAN CORPUSCULAR HGB CONC 29.3 g/dL (32.0-36.0); MEAN CORPUSCULAR VOLUME 86.9 fL (79-99); MONOCYTES % (AUTO) 6.3 % (3.0-13.0); NEUTROPHILS % (AUTO) 56.7 % (40.0-77.0); NUCLEATED RED BLOOD CELLS 0.4 % (0.0-0.19); PLATELET COUNT (AUTO) 261 K/uL (130-400); RED BLOOD CELL COUNT(AUTO) 3.06 MIL/uL (4.00-5.50); RED CELL DISTRIBUTION WIDTH 16.3 % (11.0-15.5); WHITE BLOOD COUNT (AUTO) 12.1 K/uL (4.8-10.8)
[2019-07-21 04:15] VITALS: BP 163/71
[2019-07-21 04:22] LABS: ALBUMIN 2.3 g/dL (3.5-5.0); BILIRUBIN,TOTAL 0.2 mg/dL (0.2-1.0); CREATININE 1.3 mg/dL (0.5-1.5); CRP QUANTITATIVE 35.3 mg/L (0.00-9.0); POTASSIUM 3.8 mmol/L (3.5-5.1)
[2019-07-21] MEDS: ZOSYN 3.375GM+NS 50ML 50 ML IV SCH ×2 (04:28→16:22)
[2019-07-21] MEDS: LEVOTHYROXINE 25 MCG TABLET PO SCH (06:47)
[2019-07-21] MEDS: PANTOPRAZOLE SODIUM 40 MG TABLET.DR PO SCH (06:47)
[2019-07-21] MEDS: VANCOMYCIN 750MG + NS 250 ML IV SCH ×2 (06:47)
[2019-07-21] MEDS: INSULIN HUMULIN R 100 UNIT/ML 3ML SQ SCH ×3 (06:56→16:22)
[2019-07-21] MEDS: METFORMIN HCL PO SCH ×2 (08:44→17:08)
[2019-07-21] MEDS: ASCORBIC ACID 500 MG TAB PO SCH (08:44)
[2019-07-21] MEDS: LOSARTAN 100 MG TABLET PO SCH (08:44)
[2019-07-21] MEDS: SITAGLIPTIN PHOS PO SCH ×2 (08:44→17:08)
[2019-07-21] MEDS: FLUTICASONE PROPIONATE 50MCG/SPRAY 16 GM BOTTLE EN SCH (08:44)
[2019-07-21] MEDS: OXYBUTYNIN 5 MG TAB.SR.24H PO SCH (08:44)
[2019-07-21] MEDS: DILTIAZEM HCL 120 MG CAP.SR.24H PO SCH (08:45)
[2019-07-21] MEDS: LORATADINE 10 MG TABLET PO SCH (08:45)
[2019-07-21] MEDS: FERROUS SULFATE 325 MG TABLET.DR PO SCH (08:45)
[2019-07-21] MEDS: ENOXAPARIN SODIUM 30 MG/0.3 ML SQ SCH (08:46)
[2019-07-21] MEDS: IRON SUCROSE COMPLEX 300 MG in SODIUM CHLORIDE 0.9% 250 ML IV SCH (08:47)
[2019-07-21] MEDS: UBIDECARENONE 200 MG PO SCH (08:48)
[2019-07-21 09:14] VITALS: BP 164/68
[2019-07-21 15:26] VITALS: BP 159/61
--- NOTE | 2019-07-21 15:30 | NUR ---
CM NOTE/[facility] PER HAL AT [facility], PATIENT APPROVED, WILL START SERVICES ON 07/21. AC BEDOLLA MADE AWARE.
[2019-07-21 17:50] VITALS: BP 160/59
== END 2019-07-21 18:25 | disposition home health service (06) | DRG 854 ==
LOC: EDH 10:09 → EDHIP 13:30 → 2DH 16:15 → 3AH 07-17 12:52
PROVIDERS: ADMIT Internal Medicine; ATTEND Internal Medicine
PROC: 0J980ZZ Drainage of Abdomen Subcutaneous Tissue and Fascia, Open Approach (ICD-10-PCS; principal; 2019-07-17 11:06)
DX: A41.9 Sepsis, unspecified organism (principal); L03.311 Cellulitis of abdominal wall; L03.316 Cellulitis of umbilicus; L02.211 Cutaneous abscess of abdominal wall; N17.9 Acute kidney failure, unspecified; I48.20 Chronic atrial fibrillation, unspecified; E87.6 Hypokalemia; D64.9 Anemia, unspecified; I12.9 Hypertensive chronic kidney disease with stage 1 through stage 4 chronic kidney disease, or unspecified chronic kidney disease; E66.9 Obesity, unspecified; Z68.35 Body mass index [BMI] 35.0-35.9, adult; E78.5 Hyperlipidemia, unspecified; G47.33 Obstructive sleep apnea (adult) (pediatric); J44.9 Chronic obstructive pulmonary disease, unspecified; K57.30 Diverticulosis of large intestine without perforation or abscess without bleeding; N18.3 Chronic kidney disease, stage 3 (moderate); E11.22 Type 2 diabetes mellitus with diabetic chronic kidney disease; Z82.0 Family history of epilepsy and other diseases of the nervous system; Z82.3 Family history of stroke; Z82.49 Family history of ischemic heart disease and other diseases of the circulatory system; Z82.5 Family history of asthma and other chronic lower respiratory diseases; Z83.3 Family history of diabetes mellitus; Z90.49 Acquired absence of other specified parts of digestive tract; Z88.8 Allergy status to other drugs, medicaments and biological substances; Z03.818 Encounter for observation for suspected exposure to other biological agents ruled out
CPT/HCPCS: 36415; 71045; 73090; 74176; 76705; 80048; 80053; 80202; 82728; 82948; 83036; 83605; 83615; 83735; 84100; 84132; 84145; 85025; 85378; 85651; 86140; 86618; 87040; 87070; 87076; 87205; 87633; 87635; 87804; 93005; 93970; 94640; 97039; G0378; J0330; J0696; J1100; J1650; J1756; J1815; J2001; J2060; J2175; J2250; J2270; J2405; J2543; J2704; J2710; J3010; J3370; J3475; J3490; J7030; J7050; J7120

== ENCOUNTER → 2019-08-02 | Outpatient (CLI) | payer OTHER ==
[~2019-08-02] MED LIST changes: +LIDOCAINE HCL 2% JELLY 5 ML TP ONE
[2019-08-02 15:07] VITALS: BP 167/66
== END | disposition home or self-care (01) ==
LOC: WHH 13:30
PROVIDERS: ATTEND Specialist
DX: T81.89XA Other complications of procedures, not elsewhere classified, initial encounter (principal); E11.22 Type 2 diabetes mellitus with diabetic chronic kidney disease; I12.9 Hypertensive chronic kidney disease with stage 1 through stage 4 chronic kidney disease, or unspecified chronic kidney disease; N18.3 Chronic kidney disease, stage 3 (moderate); I48.91 Unspecified atrial fibrillation; J44.9 Chronic obstructive pulmonary disease, unspecified; E78.5 Hyperlipidemia, unspecified; E66.9 Obesity, unspecified; G47.33 Obstructive sleep apnea (adult) (pediatric); A69.20 Lyme disease, unspecified; Z90.49 Acquired absence of other specified parts of digestive tract; Y83.8 Other surgical procedures as the cause of abnormal reaction of the patient, or of later complication, without mention of misadventure at the time of the procedure; Y92.89 Other specified places as the place of occurrence of the external cause
CPT/HCPCS: 87070; 87077 ×2; 87186 ×2; A6197; A6260; G0463

== ENCOUNTER → 2019-08-09 | Outpatient (CLI) | payer OTHER ==
[~2019-08-09] MED LIST changes: +GENTAMICIN SULFATE 15 GM CREAM.GM. TP ONE; -LIDOCAINE HCL 2% JELLY 5 ML TP ONE
[2019-08-09 15:12] VITALS: BP 134/47
== END | disposition home or self-care (01) ==
LOC: WHH 13:30
PROVIDERS: ATTEND Specialist
DX: T81.89XD Other complications of procedures, not elsewhere classified, subsequent encounter (principal); E11.22 Type 2 diabetes mellitus with diabetic chronic kidney disease; I12.9 Hypertensive chronic kidney disease with stage 1 through stage 4 chronic kidney disease, or unspecified chronic kidney disease; N18.3 Chronic kidney disease, stage 3 (moderate); I48.91 Unspecified atrial fibrillation; J44.9 Chronic obstructive pulmonary disease, unspecified; E78.5 Hyperlipidemia, unspecified; E66.9 Obesity, unspecified; G47.33 Obstructive sleep apnea (adult) (pediatric); A69.20 Lyme disease, unspecified; Z90.49 Acquired absence of other specified parts of digestive tract; Y83.8 Other surgical procedures as the cause of abnormal reaction of the patient, or of later complication, without mention of misadventure at the time of the procedure
CPT/HCPCS: A6209; G0463

== ENCOUNTER → 2019-08-16 | Outpatient (CLI) | payer OTHER ==
[2019-08-16 14:48] VITALS: BP 146/111; PULSE 65; RESP 18; TEMP 98.4
== END | disposition home or self-care (01) ==
LOC: WHH 13:30
PROVIDERS: ATTEND Specialist
DX: T81.89XD Other complications of procedures, not elsewhere classified, subsequent encounter (principal); E11.22 Type 2 diabetes mellitus with diabetic chronic kidney disease; I12.9 Hypertensive chronic kidney disease with stage 1 through stage 4 chronic kidney disease, or unspecified chronic kidney disease; N18.3 Chronic kidney disease, stage 3 (moderate); I48.91 Unspecified atrial fibrillation; J44.9 Chronic obstructive pulmonary disease, unspecified; E78.5 Hyperlipidemia, unspecified; E66.9 Obesity, unspecified; G47.33 Obstructive sleep apnea (adult) (pediatric); A69.20 Lyme disease, unspecified; Z90.49 Acquired absence of other specified parts of digestive tract; Y83.8 Other surgical procedures as the cause of abnormal reaction of the patient, or of later complication, without mention of misadventure at the time of the procedure
CPT/HCPCS: A6209; G0463

== ENCOUNTER → 2019-08-23 | Outpatient (CLI) | payer OTHER ==
[~2019-08-23] MED LIST changes: -DILT240C98 PO; -GENTAMICIN SULFATE 15 GM CREAM.GM. TP ONE; -IRON PO; -LEVO25TA54 PO; +LIDOCAINE HCL 4% LTA SOL 4 ML VIAL TP ONE; -OXYB10TA4 PO; -PANT40TA54 PO; -RIVA20TA PO; -SIMV-43 PO; -SITA1TAB6 PO; -UBID200C18 PO; -VALS160T2 PO
[2019-08-23 14:26] VITALS: BP 137/50; PULSE 66; RESP 18; TEMP 98.5
== END | disposition home or self-care (01) ==
LOC: WHH 13:30
PROVIDERS: ATTEND Specialist
DX: T81.89XD Other complications of procedures, not elsewhere classified, subsequent encounter (principal); E11.22 Type 2 diabetes mellitus with diabetic chronic kidney disease; I12.9 Hypertensive chronic kidney disease with stage 1 through stage 4 chronic kidney disease, or unspecified chronic kidney disease; N18.3 Chronic kidney disease, stage 3 (moderate); I48.91 Unspecified atrial fibrillation; J44.9 Chronic obstructive pulmonary disease, unspecified; E66.9 Obesity, unspecified; E78.5 Hyperlipidemia, unspecified; G47.33 Obstructive sleep apnea (adult) (pediatric); A69.20 Lyme disease, unspecified; Z90.49 Acquired absence of other specified parts of digestive tract; Y83.8 Other surgical procedures as the cause of abnormal reaction of the patient, or of later complication, without mention of misadventure at the time of the procedure
CPT/HCPCS: A6209; G0463

== ENCOUNTER → 2019-08-30 | Outpatient (CLI) | payer OTHER ==
[~2019-08-30] MED LIST changes: +DILT240C98 PO; +IRON PO; +LEVO25TA54 PO; -LIDOCAINE HCL 4% LTA SOL 4 ML VIAL TP ONE; +OXYB10TA4 PO; +PANT40TA25 PO; +RIVA20TA PO; +SIMV-43 PO; +SITA1TAB6 PO; +UBID200C18 PO; +VALS160T2 PO
== END | disposition home or self-care (01) ==
LOC: WHH 13:30
PROVIDERS: ATTEND Specialist
DX: T81.31XD Disruption of external operation (surgical) wound, not elsewhere classified, subsequent encounter (principal); E11.22 Type 2 diabetes mellitus with diabetic chronic kidney disease; I12.9 Hypertensive chronic kidney disease with stage 1 through stage 4 chronic kidney disease, or unspecified chronic kidney disease; N18.3 Chronic kidney disease, stage 3 (moderate); I48.91 Unspecified atrial fibrillation; J44.9 Chronic obstructive pulmonary disease, unspecified; E66.9 Obesity, unspecified; E78.5 Hyperlipidemia, unspecified; G47.33 Obstructive sleep apnea (adult) (pediatric); A69.20 Lyme disease, unspecified; Z90.49 Acquired absence of other specified parts of digestive tract; Y83.8 Other surgical procedures as the cause of abnormal reaction of the patient, or of later complication, without mention of misadventure at the time of the procedure
CPT/HCPCS: A6207; G0463

== ENCOUNTER 2019-09-20 13:30 | Outpatient (CLI) | payer OTHER | END 2019-09-20 14:31 | disposition home or self-care (01) | LOC: WHH 13:30 | PROVIDERS: ATTEND Specialist | DX: T81.31XD Disruption of external operation (surgical) wound, not elsewhere classified, subsequent encounter (principal); E11.22 Type 2 diabetes mellitus with diabetic chronic kidney disease; I12.9 Hypertensive chronic kidney disease with stage 1 through stage 4 chronic kidney disease, or unspecified chronic kidney disease; N18.3 Chronic kidney disease, stage 3 (moderate); I48.91 Unspecified atrial fibrillation; J44.9 Chronic obstructive pulmonary disease, unspecified; E66.9 Obesity, unspecified; E78.5 Hyperlipidemia, unspecified; G47.33 Obstructive sleep apnea (adult) (pediatric); A69.20 Lyme disease, unspecified; Z90.49 Acquired absence of other specified parts of digestive tract; Y83.8 Other surgical procedures as the cause of abnormal reaction of the patient, or of later complication, without mention of misadventure at the time of the procedure | CPT/HCPCS: G0463 ==

== ENCOUNTER → 2019-09-29 | Outpatient (CLI) | payer OTHER | END | disposition home or self-care (01) | LOC: WHH 08:52 | PROVIDERS: ATTEND Family Medicine | DX: T81.31XD Disruption of external operation (surgical) wound, not elsewhere classified, subsequent encounter (principal); E11.628 Type 2 diabetes mellitus with other skin complications; E11.22 Type 2 diabetes mellitus with diabetic chronic kidney disease; I12.9 Hypertensive chronic kidney disease with stage 1 through stage 4 chronic kidney disease, or unspecified chronic kidney disease; N18.3 Chronic kidney disease, stage 3 (moderate); I48.91 Unspecified atrial fibrillation; J44.9 Chronic obstructive pulmonary disease, unspecified; E66.9 Obesity, unspecified; E78.5 Hyperlipidemia, unspecified; G47.33 Obstructive sleep apnea (adult) (pediatric); A69.20 Lyme disease, unspecified; Z90.49 Acquired absence of other specified parts of digestive tract; Y83.8 Other surgical procedures as the cause of abnormal reaction of the patient, or of later complication, without mention of misadventure at the time of the procedure | CPT/HCPCS: 11042; A6209 ==

== ENCOUNTER 2019-10-06 09:40 | Outpatient (CLI) | payer OTHER | END 2019-10-06 11:08 | disposition home or self-care (01) | LOC: WHH 09:40 | PROVIDERS: ATTEND Family Medicine | DX: T81.89XD Other complications of procedures, not elsewhere classified, subsequent encounter (principal); E11.628 Type 2 diabetes mellitus with other skin complications; E11.22 Type 2 diabetes mellitus with diabetic chronic kidney disease; I12.9 Hypertensive chronic kidney disease with stage 1 through stage 4 chronic kidney disease, or unspecified chronic kidney disease; N18.3 Chronic kidney disease, stage 3 (moderate); I48.91 Unspecified atrial fibrillation; J44.9 Chronic obstructive pulmonary disease, unspecified; E66.9 Obesity, unspecified; E78.5 Hyperlipidemia, unspecified; G47.33 Obstructive sleep apnea (adult) (pediatric); A69.20 Lyme disease, unspecified; Z90.49 Acquired absence of other specified parts of digestive tract; Y83.8 Other surgical procedures as the cause of abnormal reaction of the patient, or of later complication, without mention of misadventure at the time of the procedure | CPT/HCPCS: G0463 ==

== ENCOUNTER 2021-01-13 01:43 | Emergency (ER) | payer MEDICARE, OTHER ==
[~2021-01-13] VITALS: Ht 167.6 cm; Wt 88.9 kg
[~2021-01-13 01:43] MED LIST changes: -PANT40TA25 PO; +PANT40TA54 PO
[2021-01-13] MEDS ORDERED: ORPHENADRINE CITRATE 30 MG/ML ML IM ONE (02:30)
[2021-01-13] MEDS ORDERED: ORPH-43 PO (04:25)
[2021-01-13] MEDS ORDERED: MELO7.5T12 PO (04:25)
[2021-01-13] MEDS ORDERED: LIDOP TP (04:27)
[2021-01-13 04:31] VITALS: BP 146/68
== END 2021-01-13 04:54 | disposition home or self-care (01) ==
LOC: EDH 01:43
DX: R51.9 Headache, unspecified (principal); M62.838 Other muscle spasm; I11.9 Hypertensive heart disease without heart failure; I25.10 Atherosclerotic heart disease of native coronary artery without angina pectoris; E11.9 Type 2 diabetes mellitus without complications; Z88.8 Allergy status to other drugs, medicaments and biological substances; Z79.1 Long term (current) use of non-steroidal anti-inflammatories (NSAID); Z79.84 Long term (current) use of oral hypoglycemic drugs; Z79.899 Other long term (current) drug therapy
CPT/HCPCS: 70450; 96372; 99284; J2360